=== PATIENT | female | born 1960 | race Caucasian/White ===

== ENCOUNTER → 2019-05-20 21:52 | Outpatient (CLI) | payer SELFPAY ==
[2019-05-20 14:55] VITALS: BMI 22.6
[2019-05-27 21:25] LABS: HPV Reflexed? NOT INDICATED
== END ==
PROVIDERS: Referring Provider Nurse Practitioner; Visit Provider Nurse Practitioner
DX: N95.0 Postmenopausal bleeding (principal)
CPT/HCPCS: 88175; G0145